=== PATIENT | female | born 1960 | race Caucasian/White ===

== ENCOUNTER → 2017-05-08 | Outpatient (CLI) | payer BC ==
[2017-05-10 11:29] LABS: HPV Genotype 16 Not Detected (NOTDET); HPV Genotype 18 Not Detected (NOTDET)
[2017-05-17 10:15] LABS: HPV High Risk Other Not Detected (NOTDET)
== END | disposition home or self-care (01) ==
LOC: OLS 16:30
PROVIDERS: Nurse Practitioner Women's Health
DX: Z12.4 Encounter for screening for malignant neoplasm of cervix (principal)
CPT/HCPCS: 87624; G0123

== ENCOUNTER → 2017-06-30 | Outpatient (CLI) | payer BC | END | disposition home or self-care (01) | LOC: LAB 16:49 → LAB SHORT 16:49 | DX: R10.2 Pelvic and perineal pain (principal) | CPT/HCPCS: 87086 ==

== ENCOUNTER → 2018-05-01 | Outpatient (CLI) | payer BC | END | disposition home or self-care (01) | LOC: LAB SHORT 10:11 → PLD 10:11 | DX: L98.8 Other specified disorders of the skin and subcutaneous tissue (principal) | CPT/HCPCS: 88305 ==

== ENCOUNTER → 2018-05-29 | Outpatient (CLI) | payer BC ==
[2018-05-29 12:47] LABS: Source, Urine Clean Catch
[2018-05-29 13:10] LABS: Bilirubin, Urine Neg (Neg); Blood, Urine 1+ (Neg); Glucose Qualitative, Urine Neg (Neg); Ketones, Urine Neg (Neg); Leukocyte Esterase, Urine Neg (Neg); Nitrite, Urine Neg (Neg); Protein, Urine Neg (Neg); Urobilinogen, Urine NORM (Normal)
[2018-05-29 13:17] LABS: Appearance, Urine Clear (Clear); Color, Urine Pale Yellow (P-Yellow)
[2018-05-29 13:19] LABS: Bacteria Not Seen /hpf; Red Blood Cells, Urine Rare /hpf (0-2); Squamous Epithelial Cells Not Seen /hpf (Few); White Blood Cells, Urine Not Seen /hpf (0-5)
[2018-05-30 14:09] LABS: HPV 16 Negative (Negative); HPV 18 Negative (Negative); HPV OTHER HR TYPES Negative (Negative)
== END ==
LOC: LAB 12:46 → LAB SHORT 12:46
PROVIDERS: Nurse Practitioner Women's Health
DX: Z12.4 Encounter for screening for malignant neoplasm of cervix (principal); R82.998 Other abnormal findings in urine; N89.8 Other specified noninflammatory disorders of vagina; Z91.89 Other specified personal risk factors, not elsewhere classified
CPT/HCPCS: 81001; 87070; 87205; 87624; G0123

== ENCOUNTER → 2021-05-06 | Outpatient (CLI) | payer BC | END | disposition home or self-care (01) | LOC: LAB SHORT 11:07 → PLD 11:07 | DX: D48.5 Neoplasm of uncertain behavior of skin (principal) | CPT/HCPCS: 88305 ==

== ENCOUNTER → 2021-05-12 | Outpatient (CLI) | payer BC | END | disposition home or self-care (01) | LOC: LAB SHORT 08:22 | DX: D48.5 Neoplasm of uncertain behavior of skin (principal) | CPT/HCPCS: 88305 ==

== ENCOUNTER → 2021-08-13 | Outpatient (CLI) | payer BC | END | disposition home or self-care (01) | LOC: LAB SHORT 19:25 → LAB 19:25 | DX: N39.0 Urinary tract infection, site not specified (principal) | CPT/HCPCS: 87086 ==

== ENCOUNTER → 2023-09-07 | Outpatient (CLI) | payer BC ==
[~2023-09-07] MED LIST: Diprolene 0.05%15 GM; ESTRADIOL0.5 MG; FISH OIL 1,0001 EA10; Flonase 0.05% N16 GM; MERIBIN5 MG; Pataday2.5 ML
[2023-09-07 07:15] LABS: Source, Urine Clean Catch
[2023-09-07 11:21] LABS: Appearance, Urine Clear (Clear); Bilirubin, Urine Neg (Neg); Blood, Urine 1+ (Neg); Color, Urine Yellow (P-Yellow); Glucose Qualitative, Urine Neg (Neg); Ketones, Urine Neg (Neg); Leukocyte Esterase, Urine Neg (Neg); Nitrite, Urine Neg (Neg); Protein, Urine 1+ (Neg); Specific Gravity, Urine 1.015 (1.003-1.022); Urobilinogen, Urine NORM (Normal); pH, Urine 6.5 (5.0-8.0)
[2023-09-07 11:38] LABS: Bacteria Rare /hpf; Squamous Epithelial Cells Rare /hpf (Few); White Blood Cells, Urine Not Seen /hpf (0-5)
== END | disposition home or self-care (01) ==
LOC: LAB SHORT 07:12 → LAB 07:12
PROVIDERS: Physician Assistant
DX: R30.0 Dysuria (principal)
CPT/HCPCS: 81001